=== PATIENT | male | born 1980 | race Asian ===

== ENCOUNTER 2024-04-23 16:01 | Emergency (ER) | payer OTHER ==
[~2024-04-23] VITALS: Ht 182.9 cm; Wt 90.0 kg
[2024-04-23 16:57] VITALS: BP 129/68; PULSE 57; RESP 18; TEMP 98.2
[2024-04-23] MEDS: ValACYclovir HCL 500 MG TABLET PO ONE (18:03)
== END 2024-04-23 18:13 | disposition home or self-care (01) ==
LOC: EMS 16:06
DX: B00.53 Herpesviral conjunctivitis (principal)
CPT/HCPCS: 99283